=== PATIENT | female | born 1985 | race Caucasian/White ===

== ENCOUNTER 2020-09-13 05:13 | Emergency (ER) | payer SELFPAY ==
--- NOTE | 2020-09-13 05:09 | PC.NURSE ---
Pt arrived to ED via EMS with Milad airway in place, breaths assisted via ambu and maykel providing chest compressions. IO noted to right tibia with 0.9 NS infusing to gravity. Per EMS, they were called out for emesis and upon their arrival pt was found in the bathroom unresponsive and PD who were on scene had began cpr. Per EMS, pt pupils were blown and she has been asystole since their arrival at approx 0440. 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 Last epi administered at 0507. Pt with known hx of drug abuse. Pt remains unresponsive and in PEA. Code continues.
--- NOTE | 2020-09-13 05:18 | PC.NURSE ---
Kwaku stopped and pulse check performed. Pt remains in PEA. Compressions remain on hold and breaths remain assisted via ambu. EDMD left bedside to speak with pt father about treatment options.
--- NOTE | 2020-09-13 05:19 | PC.NURSE ---
Per EDMD, pt father states to discontinue treatment if pt loses pulse
--- NOTE | 2020-09-13 05:23 | PC.NURSE ---
Pt noted to take a breath unassisted. Pulse check shows sinus rhythm at 76. Sodium bicarb administered via IO at 0525.
[2020-09-13] MEDS: SODIUM CHLORIDE 0.9% IV 1,000 ML 999 ML IV CONT (05:28)
--- NOTE | 2020-09-13 05:34 | PC.NURSE ---
Pt intubated with 7.5 ETT that is 25 at the lip. ETT placed by Porter WALSH.
--- NOTE | 2020-09-13 05:36 | PC.NURSE ---
Pt noted to rafael down to 44 and pulse check performed via doppler ultrasound at bedside by EDMD. Pt noted to be asystole.
--- NOTE | 2020-09-13 05:39 | PC.NURSE ---
Time of 0509 called by Porter WALSH.
--- NOTE | 2020-09-13 05:56 | PC.NURSE ---
thread puller notified and paged by [facility] office @ [phone]
--- NOTE | 2020-09-13 06:05 | PC.NURSE ---
MTS Per Salima Harris pt is currently a candidate and they will check the registry and speak with her father and return a call to us.
--- NOTE | 2020-09-13 06:06 | PC.NURSE ---
Colorectal Surgeondeanna Mancilla called and will make her way to the hospital at this time. Heading to [place] from [place].
--- NOTE | 2020-09-13 06:16 | ED.CPR ---
HPI - CPR General Chief Complaint: Cardiac Arrest/CPR Stated Complaint: Cardiac Arrest Time Seen by Provider: 09/13/20 05:19 Source: EMS Mode of arrival: EMS Limitations: clinical condition History of Present Illness HPI narrative: This is a 34 year old female with history of drug abuse who presents for evaluation of cardiac arrest. EMS states they were called for female with emesis. On their arrival, patient was found unresponsive in the bathroom. EMS states patient was asystole on arrival. EMS intubated her with i gel tube and they state she has copious amounts of emesis that was suctioned. They initiated ACLS protocol . She was given epinephrine x 4. Her last rhythm was PEA. Her pupils were dilated and fixed on their arrival. She has been pulseless for more than 20 minutes now. Related Data Allergies Allergy/AdvReac Type Severity Reaction Status Date / Time No Known Allergies Allergy Verified 09/13/20 05:28 Review of Systems Review of Systems: ROS unobtainable: Yes unobtainable due to endotracheal tube and unobtainable due to medical condition PMFSH Comments unknown medical, surgical history; patient has history of drug abuse, unknown which specific drug Exam Const: General: ill appearing Other: patient is unresponsive, currently having CPR performed Eyes: Pupils: Dilated pupils bilaterally and Fixed pupils bilaterally Resp: Auscultation: clear to auscultation bilaterally Other: patient with igel airway in place receiving assisted ventilation Cardio: Other: pulseless Skin: Other: cyanotic cool Neuro: General: Unable to assess gait Gait exam (Neuro): Unable to assess gait Other: uns Extrem: Other: IO on right tib Course Course Emergency Course: Patient presented in cardiac arrest. She was in PEA on arrival. She was given epinephrine 1 dose in ER. SHe did regain pulse so she was given bicarb and IVF. I exchanged igel for 7.5 ETT using glidescope. PAtient 's heart rate became bradycardic. I Spoke with patient's father over the phone. He states patient history of drug use. I discussed patient's course. He did not want up to continue CPR once she lost pulse. Patient's pupils have been fixed and dilated. I agree with discontinuing. PAtient time of deat 539 am. See code blue sheet. Procedures Intubation Intubation #1: Intubation Date: 09/13/20 Intubation Time: 05:34 Laryngoscope: fiber optic video scope Tube Size (cm): 7.5 Method of Intubation: orotracheal Number of Attempts: 1 Tube Secured Depth (cm): 25 Tube Secured Location: teeth Tube Placement Confirmation: visualized tube passing through cords Discharge Plan Discharge Clinical Impression: Cardiac arrest Patient Disposition: Condition: Follow-up/Referrals: PHYSICIAN,EDGERMAN [Primary Care Provider] - [facility] [place] Coma Scale Eyes: No Response Verbal: No Response Motor: No Response [place] Coma Total Score: 3
--- NOTE | 2020-09-14 05:10 | PC.NURSE ---
Per MAT we may release to home.
== END 2020-09-13 09:40 | disposition expired ==
PROVIDERS: Emergency Provider General Practice
DX: I46.9 Cardiac arrest, cause unspecified (principal); F19.10 Other psychoactive substance abuse, uncomplicated
CPT/HCPCS: 31500; 36680; 92950; 99285; J0171; J7030